=== PATIENT | female | born 1940 | race African-American/Black ===

== ENCOUNTER 2016-12-13 08:28 | Inpatient (IN) ==
[2016-12-13] MEDS ORDERED: CEFTAROLINE 600 MG in SODIUM CHLORIDE 0.9% 100 ML IV STA (09:06)
[2016-12-13] MEDS ORDERED: CEFTAROLINE 600 MG VIAL IV ONE (09:50)
[2016-12-13 10:17] LABS: Basophils % 0.2 % (0.0-0.8); Eosinophils # 0.1 10*3/uL (0.0-0.87); Eosinophils % 0.5 % (0.00-10.9); Hematocrit 41.5 VOL% (35.7-47.0); Hemoglobin 13.7 GM/DL (12.0-16.0); Immature Granulocytes % 0.6 %; Immature Granulocytes Absolute 0.08 #; Lymphocytes # 1.2 10*3/uL (1.4-4.0); Lymphocytes % 9.3 % (21.3-54.2); Mean Corpuscular Hemoglobin 29 PG (27-34); Mean Corpuscular Volume 87.6 FL (87-102); Mean Platelet Volume 9.5 FL (9.6-12.0); Monocytes # 1.1 10*3/uL (0.11-0.8); Neutrophils # 10.1 10*3/uL (1.4-7.4); Neutrophils % 80.4 % (38.7-73.9); Platelet Count 246 T/CUMM (130-400); Red Blood Count 4.74 MC/CUMM (3.8-5.5); White Blood Count 12.6 T/CUMM (4-12)
[2016-12-13 10:40] LABS: Albumin 3.2 G/DL (3.4-5.0); Bilirubin,Total 0.4 MG/DL (0.2-1.0); Calcium 9.1 MG/DL (8.5-10.1); Total Protein 6.8 G/DL (6.4-8.3)
[2016-12-13 10:41] LABS: Osmolality,Calculated 278.4 MOS/KG (273-304); Potassium 3.8 MMOL/L (3.5-5.1)
[2016-12-13 11:47] LABS: Sedimentation Rate-Westergren 55 MM/HR (0-30)
--- NOTE | 2016-12-13 12:04 | Emergency Department Note ---
Scooby Quiroz Brittany, am scribing for, and in the presence of, Beni James MD 09:03. Jacob Quiroz Doug C, MD, personally performed the services described in this documentation, ascribed by Namita Almodovar in my presence, and it is both accurate and complete . Arrival - Arrival Chief Complaint: Extremity Problem Stated Complaint: Bad leg.. cat scratches ED Nursing Triage Note: pt had a cat "pop" her leg friday. was seen at [facility] fr[facility]. pt has redness to back of the lt leg. Mode of Arrival: Ambulatory Limitations: No Limitations Source: Patient - History of Present Illness HPI Narrative: Patient 75-year-old white female presents emergency room complaining left calf pain, swelling and redness that started 4 days ago. Patient states she went to the [facility] emergency room was begun on Omnicef and Vibramycin. Patient states she had a cat scratch 4 days ago to the lateral aspect of her left calf and now has redness and swelling from the left heel to the upper calf. Patient states she has not had any fever or chills but she states she has terrible pain in her left calf. She tells me this cat scratches her all the time. She denies any nausea, vomiting or any respiratory symptoms. She does have a history of DVT and is on Xarelto and she tells me she is quite compliant with it. Onset (ago): day(s) (3) Consistency: constant Allergies/Adverse Reactions: Allergies Allergy/AdvReac Type Severity Reaction Status Date / Time No Known Allergies Allergy Verified 01/12/15 11:49 Home Medications: Home Medications Medication Instructions Recorded Confirmed Type Albuterol/Ipratropium Neb [Duoneb] 3 ml RESP TX RT Q6H PRN 01/12/15 01/12/15 History Budesonide/Formoterol 160-4.5 2 puff INH BID 01/12/15 01/12/15 History [Symbicort 160-4.5] Furosemide Tab [Lasix Tab] 40 mg PO DAILY 01/12/15 01/12/15 History Lisinopril 20 mg PO DAILY 01/12/15 01/12/15 History Oxycodone HCl/Acetaminophen 1 each PO Q8H PRN 01/12/15 01/12/15 History [Oxycodone-Acetaminophen 10-325] Potassium Chloride [Klor-Con M20] 20 meq PO DAILY 01/12/15 01/12/15 History predniSONE TAB [PredniSONE] 5 mg PO DAILY 01/12/15 01/12/15 History Albuterol/Ipratropium Neb [Duoneb] 3 ml RESP TX BID 01/13/15 01/13/15 History Docusate Sodium Cap [Colace Cap] 100 mg PO BID 01/13/15 01/13/15 History Magnesium Hydroxide Susp [Milk of 30 ml PO DAILY PRN 01/13/15 01/13/15 History Magnesia] Polyethylene Glycol Powder 17 gm PO DAILY 01/13/15 01/13/15 History [Miralax] Rivaroxaban [Xarelto] 15 mg PO BID W/MEALS #40 tablet 01/14/15 Rx Review of System - Review of System 12 point system: reviewed and no additional remarkable complaints except as stated - Review of System Constitutional: Present: fever. Absent: chills Eyes: Absent: vision change Head/Ears/Nose/Throat: Absent: nasal drainage, sore throat Respiratory: Absent: respiratory distress Cardiovascular: Absent: chest pain Gastrointestinal: Absent: abdominal pain, nausea, vomiting, diarrhea, constipation Genitourinary female: Absent: dysuria, frequency, urgency Musculoskeletal: Present: leg pain (LLE). Absent: arm pain, back pain Skin: Present: change in color (erythema to posterior LLE), other (cat bite to posterior LLE). Absent: rash Neurological: Absent: headache Psychiatric: Absent: anxiety, depression Hematological/Lymphatic: Absent: easy bleeding, easy bruising Medical,Surgical,& Family Hx - Medical History Cardio: History of: Hypertension Endocrine: History of: Endocrine Problems (pituitary glan removal last month) Respiratory: History of: Asthma Musculoskeletal: History of: Musculoskeletal Problems (DVT) - Surgical History Surgical History: noncontributory - Family History Family History: noncontributory - Social History Smoking Status: Never smoker Frequency of Alcohol Use: None Type of Drug Use: None Exam Vital Signs: Vital Signs Temperature 96.9 F L 12/13/16 08:47 Pulse Rate 97 H 12/13/16 08:47 Respiratory Rate 18 12/13/16 08:47 Blood Pressure 142/81 12/13/16 08:47 O2 Sat by Pulse Oximetry 98 12/13/16 08:31 - General General appearance: alert, in no apparent distress - Head Head exam: Present: atraumatic, normocephalic, normal inspection - Eye Eye exam: Present: normal appearance, PERRL, EOMI - ENT ENT exam: Present: normal exam, normal oropharynx - Neck Neck exam: Present: normal inspection, full ROM, trachea midline - Chest Chest inspection: Present: normal inspection, symmetric chest wall rise - Respiratory Respiratory exam: Present: normal lung sounds bilaterally - Cardiovascular Cardiovascular exam: Present: regular rate, normal rhythm, normal heart sounds - Abdominal Exam Abdominal exam: Present: soft, normal bowel sounds. Absent: tenderness - Extremities Exam Extremities exam: Present: full ROM, normal capillary refill, pedal edema ( distal edema of the LLE). Absent: normal inspection ( diffuse erythema posterior greater than anterior and swelling to the distal aspect of the LLE ), tenderness - Back Exam Back exam: Present: normal inspection - Neurological Exam Neurological exam: Present: alert, oriented X3, CN II-XII intact. Absent: motor sensory deficit - Psychiatric Psychiatric exam: Present: normal affect, normal mood - Skin Skin exam: Present: warm, dry, erythema (erythema to LLE posterior greater than anterior). Absent: normal color Course Course Narrative: Patient's clinical presentation, laboratory findings were discussed with Christelle who is covering the hospitalist service. She will arrange patient seen and evaluated for admission. Results - Labs CBC & BMP: 12/13/16 10:06 12/13/16 10:06 Lab Results: I have reviewed the patients labs Labs: Laboratory Tests 12/13/16 10:06 WBC 12.6 H RBC 4.74 Hgb 13.7 Hct 41.5 Plt Count 246 MPV 9.5 L Neut % (Auto) 80.4 H Lymph % (Auto) 9.3 L Neut # (Auto) 10.1 H Lymph # (Auto) 1.2 L [place] # (Auto) 1.1 H Laboratory Tests 12/13/16 10:06 Sodium 140 Potassium 3.8 Chloride 107 Carbon Dioxide 28 BUN 14 Creatinine 0.80 Glucose 85 AST 12 ALT 16 Lactate Dehydrogenase 177 C-Reactive Protein 25.70 H Albumin 3.2 L Globulin 3.6 H Albumin/Globulin Ratio 0.8 L Laboratory Tests 12/13/16 10:06 ESR Westergren 55 H Disposition Clinical Impression: Lower extremity cellulitis Case discussed with: patient Disposition: Still a Patient Condition: Stable Time of Disposition: 12:04
--- NOTE | 2016-12-13 12:33 | Hospitalist History & Physical ---
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 Will try with infection. Current Visit: Yes History of Present Illness History of present illness: Ms. Serrano is a 75 year old female with a history of chronic venous insufficiency maintained on Xarelto for several years. On Friday her outdoor cat scratched her left leg. On Friday she noticed that the leg was swelling and was uncomfortable and presented to the [facility] emergency room. She received an injection of Rocephin was placed on Omnicef and tetracycline. She was unable to fill this until yesterday. During this interval redness intervened with continuing swelling. There was no drainage or discharge. She presented to our emergency room and is admitted for cellulitis of the left lower extremity. Patient's last admission here in 2014 was for superficial phlebitis which developed after her Xarelto was held for a resection of a pituitary adenoma. 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 She has had no systemic symptoms in association with a cellulitis. Home Medications Medication Instructions Recorded Confirmed Type Albuterol/Ipratropium Neb [Duoneb] 3 ml RESP TX RT Q6H PRN 01/12/15 01/12/15 History Budesonide/Formoterol 160-4.5 2 puff INH BID 01/12/15 01/12/15 History [Symbicort 160-4.5] Furosemide Tab [Lasix Tab] 40 mg PO DAILY 01/12/15 01/12/15 History Lisinopril 20 mg PO DAILY 01/12/15 01/12/15 History Oxycodone HCl/Acetaminophen 1 each PO Q8H PRN 01/12/15 01/12/15 History [Oxycodone-Acetaminophen 10-325] Potassium Chloride [Klor-Con M20] 20 meq PO DAILY 01/12/15 01/12/15 History predniSONE TAB [PredniSONE] 5 mg PO DAILY 01/12/15 01/12/15 History Albuterol/Ipratropium Neb [Duoneb] 3 ml RESP TX BID 01/13/15 01/13/15 History Docusate Sodium Cap [Colace Cap] 100 mg PO BID 01/13/15 01/13/15 History Magnesium Hydroxide Susp [Milk of 30 ml PO DAILY PRN 01/13/15 01/13/15 History Magnesia] Polyethylene Glycol Powder 17 gm PO DAILY 01/13/15 01/13/15 History [Miralax] Rivaroxaban [Xarelto] 15 mg PO BID W/MEALS #40 tablet 01/14/15 Rx Allergies Allergy/AdvReac Type Severity Reaction Status Date / Time No Known Allergies Allergy Verified 01/12/15 11:49 Medical,Surgical,& Family Hx - Medical History Cardio: History of: Hypertension (10-15 years) Endocrine: History of: Dyslipidemia (She was recently placed on Pravachol), Endocrine Problems (Removal of pituitary adenoma no replacement treatments require) Respiratory: History of: Asthma (She describes childhood and continuing asthma) Hematology: History of: 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) - Surgical History HEENT Surgeries: Surgical HX of: Tonsilectomy & Adenoidectomy Additional Surgical History: Removal of pituitary adenoma - Social History Smoking Status: Former smoker (20 pack years or less) Frequency of Alcohol Use: None Type of Drug Use: None - Constitutional Constitutional: Absent: chills - Cardiovascular Cardiovascular: Absent: chest pain at rest, chest pain with activity, dyspnea, palpitations - Respiratory Respiratory: Absent: hemoptysis - Gastrointestinal Gastrointestinal: Absent: abdominal pain, change in bowel habits, dysphagia, hematemesis, hematochezia, melena, nausea, vomiting, jaundice - Genitourinary Genitourinary: Absent: hematuria - Neurological Neurological: Absent: convulsions, syncope Exam - Constitutional Vitals: Period Temp Pulse Resp BP Sys/Gaytan Pulse Ox Last 24 Hr 96.9 F-96.9 F 97-97 18-18 142-142/81-81 98 General appearance: normal weight, no acute distress - Neck Neck exam: Absent: lymphadenopathy, thyromegaly - Respiratory Respiratory exam: Present: clear to auscultation bilaterally. Absent: rales, rhonchi, wheezes - Cardiovascular Cardiovascular exam: Present: regular rate and rhythm. Absent: carotid bruit - GI/Abdominal GI/Abdominal exam: Present: normal bowel sounds. Absent: organomegaly, tenderness - Extremities Exam Extremities exam: Present: other (Erythema and warmth left lower extreme from foot to mid mcelroy, no exudate) - Neurological Exam Neurological exam: Present: alert, oriented X3 Results - Labs CBC & BMP: 12/13/16 10:06 12/13/16 10:06 Labs: Albumin 3.2 Globulin 3.6
[2016-12-13] MEDS ORDERED: ONDANSETRON 4 MG/2 ML VIAL IV PRN (12:43)
[2016-12-13] MEDS ORDERED: CLINDAMYCIN INJ 50 ML IV ONE (14:19)
[2016-12-13] MEDS: BUDESONIDE/FORMOTEROL 160-4.5 INHALER 6 GM INH SCH (21:29)
[2016-12-13] MEDS: BISACODYL 5 MG TABLET PO PRN (21:30)
[2016-12-13] MEDS: CEFTAROLINE 600 MG in SODIUM CHLORIDE 0.9% 100 ML IV SCH (21:32)
[2016-12-13] MEDS: ZALEPLON 5 MG CAPSULE PO PRN (21:32)
[2016-12-13] MEDS: CLINDAMYCIN INJ 900 MG in PREMIX 1 EACH IV SCH (23:38)
[2016-12-14] MEDS ORDERED: BISACODYL 10 MG SUPP RECTAL PRN (03:40)
[2016-12-14] MEDS: CLINDAMYCIN INJ 900 MG in PREMIX 1 EACH IV SCH ×2 (07:14→14:55)
[2016-12-14] MEDS: ALBUTEROL/IPRATROPIUM 3 ML NEB RESP TX PRN ×2 (07:52→20:15)
--- NOTE | 2016-12-14 08:20 | Hospitalist Progress Note ---
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 Intravenous antibiotics initiated 13 December Current Visit: Yes Hospitalist: Subjective Interval history: 75-year-old female with history of chronic venous insufficiency maintained on Xarelto for the past several years after recurrent episodes of thrombophlebitis. She was scratched by her cat on the left leg Linda developing progressive erythema and swelling. Initial short course of outpatient therapy was unsuccessful and she was admitted with cellulitis. Overnight her vital signs have been stable she is afebrile. Swelling has diminished although erythema persists. Exam - Constitutional Vitals: Period Temp Pulse Resp BP Sys/Gaytan Pulse Ox Last 24 Hr 96.9 F-98.6 F 72-97 16-20 105-156/55-83 94-98 General appearance: normal weight - Respiratory Respiratory exam: Present: clear to auscultation bilaterally. Absent: rales, rhonchi, wheezes - Cardiovascular Cardiovascular exam: Present: regular rate and rhythm - Extremities Exam Extremities exam: Present: other (Slight progression in the line of erythema and warmth in the left lower extremity swelling markedly reduced) - Neurological Exam Neurological exam: Present: alert, oriented X3 Results - Labs CBC & BMP: 12/13/16 10:06 12/13/16 10:06 Quality Measures - VTE Contraindication to Pharmacological VTE Prophylaxis: Coagulopathy Contraindication to Mechanical VTE Prophylaxis: Local Inflammation
[2016-12-14] MEDS: RIVAROXABAN 20 MG TABLET PO SCH (09:36)
[2016-12-14] MEDS: PRAVASTATIN 20 MG TABLET PO SCH (09:36)
[2016-12-14] MEDS: LISINOPRIL 20 MG TABLET PO SCH (09:36)
[2016-12-14] MEDS: BUDESONIDE/FORMOTEROL 160-4.5 INHALER 6 GM INH SCH ×2 (09:37→22:00)
[2016-12-14] MEDS: CEFTAROLINE 600 MG in SODIUM CHLORIDE 0.9% 100 ML IV SCH ×2 (09:37→21:59)
[2016-12-14] MEDS: BISACODYL 5 MG TABLET PO PRN (21:59)
[2016-12-14] MEDS: ZALEPLON 5 MG CAPSULE PO PRN (22:09)
[2016-12-15] MEDS: CLINDAMYCIN INJ 900 MG in PREMIX 1 EACH IV SCH ×4 (00:40→23:41)
[2016-12-15] MEDS: ALBUTEROL/IPRATROPIUM 3 ML NEB RESP TX PRN ×2 (07:46→19:27)
[2016-12-15] MEDS: PRAVASTATIN 20 MG TABLET PO SCH (08:29)
[2016-12-15] MEDS: RIVAROXABAN 20 MG TABLET PO SCH (08:29)
[2016-12-15] MEDS: BUDESONIDE/FORMOTEROL 160-4.5 INHALER 6 GM INH SCH ×2 (08:29→20:59)
[2016-12-15] MEDS: LISINOPRIL 20 MG TABLET PO SCH (08:29)
[2016-12-15] MEDS: CEFTAROLINE 600 MG in SODIUM CHLORIDE 0.9% 100 ML IV SCH ×2 (08:30→20:59)
--- NOTE | 2016-12-15 13:23 | Hospitalist Progress Note ---
Assessment and Plan - Time spent with patient Time spent with patient: Greater than 30 minutes (Pt is new to me today, Chart reviewed by me today. I discussed with pt and RN in regarding her clinical status today.) (1) Lower extremity cellulitis Status: Acute Assessment and plan: Improving. Continue IV antibiotics. Current Visit: Yes (2) Deep vein thrombosis of lower extremity Status: Acute Assessment and plan: Continue Xarelto. Current Visit: No Qualifiers: Laterality: right Qualified Code(s): I82.401 - Acute embolism and thrombosis of unspecified deep veins of right lower extremity (3) Asthma Status: Chronic Assessment and plan: Continue current medication treatment. Current Visit: No (4) History of pituitary surgery Status: Acute Current Visit: No Hospitalist: Subjective Interval history: 12/15/16: No overnight acute event. Leg swelling much better. No fever, chest pain, abd pain or dysuria Interval history: 75-year-old female with history of chronic venous insufficiency maintained on Xarelto for the past several years after recurrent episodes of thrombophlebitis. She was scratched by her cat on the left leg Linda developing progressive erythema and swelling. Initial short course of outpatient therapy was unsuccessful and she was admitted with cellulitis. Overnight her vital signs have been stable she is afebrile. Swelling has diminished although erythema persists. Exam - Constitutional Vitals: Period Temp Pulse Resp BP Sys/Gaytan Pulse Ox Last 24 Hr 97.5 F-98.4 F 63-83 16-20 110-143/59-76 96-99 Exam: General: Lying in bed supine. Very talkative. HEENT: NC AT EOMI, normal lips and gum Lungs: Decreased breath sound on right side. Heart: +S1/S2, RRR Abd: +BS NT ND Skin: slight red and swelling and warmness on leg. Neuro: AAox3. Results - Labs CBC & BMP: 12/13/16 10:06 12/13/16 10:06 Quality Measures - VTE Contraindication to Pharmacological VTE Prophylaxis: Coagulopathy Contraindication to Mechanical VTE Prophylaxis: Local Inflammation
[2016-12-15] MEDS: BISACODYL 5 MG TABLET PO PRN (21:02)
[2016-12-15] MEDS: ZALEPLON 5 MG CAPSULE PO PRN (21:02)
[2016-12-16] MEDS: CLINDAMYCIN INJ 900 MG in PREMIX 1 EACH IV SCH ×3 (06:29→22:07)
[2016-12-16 06:59] LABS: Basophils % 0.5 % (0.0-0.8); Eosinophils # 0.3 10*3/uL (0.0-0.87); Eosinophils % 5.6 % (0.00-10.9); Hematocrit 40.9 VOL% (35.7-47.0); Hemoglobin 13.4 GM/DL (12.0-16.0); Immature Granulocytes % 0.3 %; Immature Granulocytes Absolute 0.02 #; Lymphocytes # 1.2 10*3/uL (1.4-4.0); Lymphocytes % 21.2 % (21.3-54.2); Mean Corpuscular HGB Conc 32.8 GM/DL (32-36); Mean Corpuscular Hemoglobin 29 PG (27-34); Mean Corpuscular Volume 87.4 FL (87-102); Mean Platelet Volume 10.7 FL (9.6-12.0); Monocytes # 0.5 10*3/uL (0.11-0.8); Monocytes % 8.2 % (1.7-12.7); Neutrophils # 3.8 10*3/uL (1.4-7.4); Neutrophils % 64.2 % (38.7-73.9); Platelet Count 268 T/CUMM (130-400); Red Blood Count 4.68 MC/CUMM (3.8-5.5); Red Cell Distribution Width 15.4 % (9.3-17.3); White Blood Count 5.9 T/CUMM (4-12)
[2016-12-16 07:25] LABS: Hypochromasia 1+; Polychromasia Slight
[2016-12-16 07:26] LABS: Macrocytosis 1+
[2016-12-16] MEDS: ALBUTEROL/IPRATROPIUM 3 ML NEB RESP TX PRN ×2 (07:40→18:55)
[2016-12-16] MEDS: PRAVASTATIN 20 MG TABLET PO SCH (09:29)
[2016-12-16] MEDS: RIVAROXABAN 20 MG TABLET PO SCH (09:29)
[2016-12-16] MEDS: CEFTAROLINE 600 MG in SODIUM CHLORIDE 0.9% 100 ML IV SCH ×2 (09:29→20:51)
[2016-12-16] MEDS: LISINOPRIL 20 MG TABLET PO SCH (09:29)
[2016-12-16] MEDS: BUDESONIDE/FORMOTEROL 160-4.5 INHALER 6 GM INH SCH ×2 (09:48→20:51)
--- NOTE | 2016-12-16 11:24 | Ultrasound Report ---
Bilateral lower extremity venous Doppler with ba scale, Spectral Doppler and color-flow analysis performed and interpreted. Indication: Leg swelling Scanning over both common femoral veins, superficial femoral veins, greater saphenous veins and popliteal veins demonstrates normal compressibility, color flow, and augmentation. Impression: No evidence of DVT seen in either lower extremity. The Ultrasound images were captured and stored. PROCEDURE INTERPRETED AT [facility] DEPARTMENT OF RADIOLOGY Final Report Signed by: Dr. Mesha Lim
--- NOTE | 2016-12-16 17:14 | Hospitalist Progress Note ---
Assessment and Plan (1) Lower extremity cellulitis Status: Acute Assessment and plan: Continue IV antibiotics Current Visit: Yes Qualifiers: Laterality: left Qualified Code(s): L03.116 - Cellulitis of left lower limb Hospitalist: Subjective Interval history: Patient seen and examined. No acute events overnight. Case discussed with nursing staff. Labs reviewed. The patient reports significant improvement in her lower extremity. Exam - Constitutional Vitals: Period Temp Pulse Resp BP Sys/Gaytan Pulse Ox Last 24 Hr 97.7 F-98.0 F 64-84 16-20 141-152/68-81 93-100 Exam: Constitutional System: No distress. No tremulousness. The patient is pleasant and cooperative Head: Normocephalic, atraumatic. Ears, Nose and Throat System: No pain or tenderness. No epistaxis or discharge Eyes System: Pupils equal, round, and reactive. Extraocular muscles intact. Neck: Supple, without adenopathy, No jugular venous distention. Respiratory System: Chest clear to auscultation. Cardiovascular System: Heart with regular rate and rhythm. No murmur. GI System: Abdomen soft, nontender. Normo active bowel sounds present. Musculoskeletal System: limbs with no pedal edema. Full distal pulses. Left lower extremity with some redness but improved significantly since admission. No drainage. Neurological System: No discernable sensory deficit. No aphasia Psychiatric System: Conversation is rational Results - Labs CBC & BMP: 12/16/16 06:02 12/13/16 10:06 Lab Results: I have reviewed the past 24 hour labs Quality Measures - VTE Contraindication to Pharmacological VTE Prophylaxis: Coagulopathy Contraindication to Mechanical VTE Prophylaxis: Local Inflammation
[2016-12-16] MEDS: ZALEPLON 5 MG CAPSULE PO PRN (20:51)
[2016-12-16] MEDS: BISACODYL 5 MG TABLET PO PRN (20:52)
[2016-12-17] MEDS: CLINDAMYCIN INJ 900 MG in PREMIX 1 EACH IV SCH (06:07)
[2016-12-17] MEDS: LISINOPRIL 20 MG TABLET PO SCH (08:46)
[2016-12-17] MEDS: PRAVASTATIN 20 MG TABLET PO SCH (08:46)
[2016-12-17] MEDS: RIVAROXABAN 20 MG TABLET PO SCH (08:46)
[2016-12-17] MEDS: ALBUTEROL/IPRATROPIUM 3 ML NEB RESP TX PRN ×2 (09:36→19:48)
[2016-12-17] MEDS: BUDESONIDE/FORMOTEROL 160-4.5 INHALER 6 GM INH SCH ×2 (09:45→20:46)
[2016-12-17] MEDS: CEFTAROLINE 600 MG in SODIUM CHLORIDE 0.9% 100 ML IV SCH (09:47)
--- NOTE | 2016-12-17 14:04 | Hospitalist Progress Note ---
Hospitalist: Subjective Interval history: Patient has no complaints. She notes that the swelling and redness of her left leg have improved. Exam - Constitutional Vitals: Period Temp Pulse Resp BP Sys/Gaytan Pulse Ox Last 24 Hr 96.9 F-98.3 F 72-90 16-20 136-165/77-101 94-99 General appearance: no acute distress - Head Head exam: Present: normal inspection - Eye Eye exam: Present: EOMI Pupils: Present: LATASHA - Respiratory Respiratory exam: Present: clear to auscultation bilaterally. Absent: rales, rhonchi, wheezes - Cardiovascular Cardiovascular exam: Present: regular rate and rhythm. Absent: diastolic murmur , systolic murmur - GI/Abdominal GI/Abdominal exam: Present: normal bowel sounds, soft. Absent: distended, guarding, tenderness - Extremities Exam Extremities exam: Present: other (LLE: mild area of erythema and swelling of distal left leg; no tenderness) - Neurological Exam Neurological exam: Present: alert, oriented X3 - Psychiatric Psychiatric exam: Present: normal affect, normal mood Results - Labs CBC & BMP: 12/16/16 06:02 12/13/16 10:06 - Impressions 1. LLE cellulitis: improving; on IV clindamycin and ceftaroline. Bcx from showed no growth. Will d/c IV antibiotics and switch to oral clindamycin 2. BLE DVT: on xarelto; bilateral venous duplex scan from yesterday showed no clot 3. h/o asthma: stable 4. Chronic venous insufficiency:stable 5. HTN: controlled Plan: switch to oral clindamycin; d/c parenteral antibiotics; if stable, d/c in am. Quality Measures - VTE Contraindication to Pharmacological VTE Prophylaxis: Coagulopathy Contraindication to Mechanical VTE Prophylaxis: Local Inflammation
[2016-12-17] MEDS: ZALEPLON 5 MG CAPSULE PO PRN (21:10)
[2016-12-17] MEDS: CLINDAMYCIN 150 MG CAPSULE PO SCH (21:10)
[2016-12-18] MEDS: CLINDAMYCIN 150 MG CAPSULE PO SCH (05:24)
[2016-12-18] MEDS: ALBUTEROL/IPRATROPIUM 3 ML NEB RESP TX PRN (07:09)
[2016-12-18] MEDS: RIVAROXABAN 20 MG TABLET PO SCH (08:36)
[2016-12-18] MEDS: PRAVASTATIN 20 MG TABLET PO SCH (08:36)
[2016-12-18] MEDS: LISINOPRIL 20 MG TABLET PO SCH (08:36)
[2016-12-18] MEDS: BUDESONIDE/FORMOTEROL 160-4.5 INHALER 6 GM INH SCH (08:36)
[2016-12-18 08:58] VITALS: BP 167/93
--- NOTE | 2016-12-18 09:46 | Discharge Summary ---
Hospital Course - Hospital Course Hospital Course: Ms. Serrano is a 75 year old female with a history of chronic venous insufficiency maintained on Xarelto for several years. On Friday her outdoor cat scratched her left leg. On Friday she noticed that the leg was swelling and was uncomfortable and presented to the [facility] emergency room. She received an injection of Rocephin was placed on Omnicef and tetracycline. She was unable to fill this until yesterday. During this interval redness intervened with continuing swelling. There was no drainage or discharge. She presented to our emergency room and is admitted for cellulitis of the left lower extremity. Patient's last admission here in 2014 was for superficial phlebitis which developed after her Xarelto was held for a resection of a pituitary adenoma. 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 She has had no systemic symptoms in association with a cellulitis. He was admitted to the hospital the diagnosis of left lower extremity cellulitis. Blood cultures were negative. A venous duplex Doppler examination of the lower extremities demonstrated no evidence of recurrent deep vein thrombophlebitis. She was continued on her previously prescribed rivaroxaban. She was treated with intravenous clindamycin. She experienced significant improvement of the swelling and pain of her left lower extremity. The time of her discharge was comfortable with no complaints. Diagnosis - Discharge Diagnosis (1) Deep vein thrombosis of lower extremity Status: Chronic (2) Lower extremity cellulitis Status: Acute Discharge Plan - Discharge Data Condition at Discharge: Stable Discharge Diet: advance to your usual diet Activity: resume usual activities as tolerated Hygiene: no restrictions Contact your physician if you experience:: fever over 101, Redness or swelling - Discharge Medications New Clindamycin Cap [Cleocin Cap] 450 mg PO Q8HR #15 capsule Lisinopril [Prinivil] 20 mg PO DAILY tablet Pravastatin [Pravachol] 20 mg PO DAILY tablet Rivaroxaban [Xarelto] 20 mg PO DAILY W/BREAKFAST tablet Continue Furosemide Tab [Lasix Tab] 40 mg PO DAILY Albuterol/Ipratropium Neb [Duoneb] 3 ml RESP TX RT Q6H PRN PRN Reason: Shortness Of Breath/Wheezing Oxycodone HCl/Acetaminophen [Oxycodone-Acetaminophen 10-325] 1 each PO Q8H PRN PRN Reason: Pain Lisinopril 20 mg PO QAM Budesonide/Formoterol 160-4.5 [Symbicort 160-4.5] 2 puff INH BID Potassium Chloride [Klor-Con M20] 20 meq PO DAILY Albuterol/Ipratropium Neb [Duoneb] 3 ml RESP TX BID Pravastatin Sodium 20 mg PO BEDTIME Amlodipine Besylate 5 mg PO QAM Rivaroxaban [Xarelto] 20 mg PO QAM - Follow Up or Referral - Forms/Instructions Exam - Constitutional Vitals: Period Temp Pulse Resp BP Sys/Gaytan Pulse Ox Last 24 Hr 96.9 F-98.1 F 75-95 16-20 101-167/53-101 92-98 Discharge Results Procedures and tests throughout hospitalization: Pending Orders 12/13/16 11:19 Blood Culture Stat Labs on day of discharge: Preliminary micro results at discharge 12/13/16 11:19 Blood Culture - Preliminary Blood No growth at 3 days 12/13/16 11:23 Blood Culture - Preliminary Blood No growth at 3 days DS: Provider Date of admission: 12/13/16 12:43 Primary care physician: Mackenzie Cervantes, Attending physician on admission: Thee Azul MD Consults: 12/13/16 15:09 Consult to Pastoral Services [CONS] Routine Comment: Pastoral Screen: Request Consultant [employer] (Ex ) Visit Pastoral Screen Source of Request: Patient Discharging clinician: Bakari Cisneros
== END 2016-12-18 12:27 | disposition home or self-care (01) | DRG 603 ==
LOC: N.ED 08:28 → N.EDINP 12:43 → SUATTDRO 12:43 → N.EDINP 14:30 → N.5E 14:41
PROVIDERS: ADMIT Internal Medicine Cardiovascular Disease